=== PATIENT | female | born 1990 | race Two or more races ===

== ENCOUNTER 2021-02-17 23:06 | Emergency (ER) | payer OTHER ==
[~2021-02-17] VITALS: Ht 167.6 cm; Wt 95.3 kg
--- NOTE | 2021-02-17 23:47 | NUR ---
PATIENT TO ER BED 16 C/O SYNCOPAL EPISODE AT HOME. PATIENT STATES THAT SINCE JUNE SHE HAS BEEN BLEEDING FROM HER VAGINA. PATIENT STATES THAT SHE HAS BEEN DIAGNOSED WITH ANEMIA SINCE SHE WAS 19. PATIENT STATES THAT SHE THINKS SHE MAY HAVE FIBROIDS THAT NEEDS TO BE REMOVED AND MAY BE CAUSING HER TO BLEED. PATIENT IS AAOX4. NO SOB. BREATHING EVENLY AND UNLABORED ON ROOM AIR. CONNECTED TO THE MONITOR.
[2021-02-17 23:56] LABS: BASOPHILS # (AUTO) 0.1 /CMM (0.0-0.2); BASOPHILS % (AUTO) 0.8 % (0.0-2.0); EOSINOPHILS % (AUTO) 0.6 % (0.0-6.0); HEMATOCRIT 25 % (33-45); HEMOGLOBIN 7.5 g/dL (11.5-14.8); LYMPHOCYTES # (AUTO) 1.2 /CMM (0.8-4.8); MEAN CORPUSCULAR HGB CONC 30 g/dl (31.0-36.0); MEAN CORPUSCULAR VOLUME 72 fL (82-100); MONOCYTES # (AUTO) 0.4 /CMM (0.1-1.30); MONOCYTES % (AUTO) 6.6 % (2.0-12.0); NEUTROPHILS # (AUTO) 4.6 /CMM (1.8-8.9); PLATELET COUNT (AUTO) 324 /CMM (150-450); WHITE BLOOD COUNT (AUTO) 6.3 K/uL (4.3-11.0)
[2021-02-18 00:06] LABS: CALCIUM, SERUM 9.1 mg/dL (8.5-10.1); CREATININE 0.7 mg/dL (0.6-1.3); POTASSIUM 3.2 mmol/L (3.5-5.1)
[2021-02-18 00:12] LABS: ALBUMIN 3.7 g/dL (3.4-5.0); BILIRUBIN,DIRECT 0.1 mg/dL (0.0-0.2); BILIRUBIN,TOTAL 0.7 mg/dL (0.2-1.0); TOTAL PROTEIN, SERUM 7.4 g/dL (6.4-8.2)
[2021-02-18 00:54] LABS: LYMPHOCYTES % (MANUAL) 20 % (16-48); NEUTROPHILS % (MANUAL) 70 (42-76)
[2021-02-18 00:55] LABS: EOSINOPHILS % (MANUAL) 2 % (0-4); MONOCYTES % (MANUAL) 8 % (0-11.0)
--- NOTE | 2021-02-18 05:45 | NUR ---
BLOOD FINISHED AT 0525. NO TRANSFUSION REACTION.
--- NOTE | 2021-02-18 06:08 | NUR ---
IV removed. Catheter intact and site benign. Pressure and 4x4 applied to site. No bleeding noted.
--- NOTE | 2021-02-18 06:09 | NUR ---
Patient discharged to home in stable condition. Written and verbal after care instructions given. Patient verbalizes understanding of instruction.
[2021-02-18 06:11] VITALS: BP 119/68
== END 2021-02-18 06:11 | disposition home or self-care (01) ==
LOC: ER 23:07
DX: N93.8 Other specified abnormal uterine and vaginal bleeding (principal); R55 Syncope and collapse; D64.9 Anemia, unspecified; D25.9 Leiomyoma of uterus, unspecified
CPT/HCPCS: 36415 ×2; 36430; 80048; 80076; 85007; 85025; 85730; 86850; 86923; 99285; J7040; P9016